=== PATIENT | male | born 1960 | race Caucasian/White ===

== ENCOUNTER 2020-08-11 06:02 | Day surgery (SDC) | payer MEDICARE, BC, OTHER ==
[~2020-08-11] VITALS: Ht 170.2 cm; Wt 78.8 kg
[~2020-08-11 06:02] MED LIST: ALBU8.5H INH; ALBUTEROL SULFATE 2.5 MG/0.5 ML INH NEB SOLN INH ONE; AZIT-12 PO; B-12100010 PO; CARV6.25 PO; FAMO40TA3 PO; FOLI1TAB11 PO; GNP45TAB2 PO; LIDOCAINE 1% MDV 20ML VIAL SQ PRN; LIDOCAINE 4% INJ 5ML AMP NEB ONE; LISI-898 PO; LR 1,000 ML IV ONE; NICOINH INH; ONDA8TAB10 PO; PANT40TA29 PO; TREL1AER; WARF-23 PO
[2020-08-11] MEDS ORDERED: ENOX40IN3 SC (06:38)
[2020-08-11 07:14] LABS: INR 0.95; PROTHROMBIN TIME 12.9 SECONDS (12.5-14.3)
[2020-08-11] MEDS ORDERED: THROMBIN SOLN 20,000 UNITS KIT As Ordered ONE (07:19)
[2020-08-11] MEDS ORDERED: LIDOCAINE 1% SDV 30ML VIAL As Ordered ONE (07:19)
[2020-08-11] MEDS ORDERED: LIDOCAINE 4% TOPICAL SOLN 50 ML BTL As Ordered ONE (07:19)
[2020-08-11] MEDS ORDERED: EPINEPHrine 1MG/10ML SYRINGE 1.5IN As Ordered ONE (07:19)
[2020-08-11] MEDS ORDERED: LIDOCAINE VISCOUS 2% SOLN 15ML UDC As Ordered ONE (07:20)
[2020-08-11] MEDS ORDERED: CETACAINE SPRAY 5GM As Ordered ONE (07:21)
[2020-08-11] MEDS ORDERED: dexameTHASONE 4 MG/ML 1ML VIAL (J1100 PER 1MG) As Ordered ONE (07:21)
[2020-08-11] MEDS ORDERED: ROCURONIUM BROMIDE 50 MG/5 ML VIAL As Ordered ONE (07:21)
[2020-08-11] MEDS ORDERED: LIDOCAINE 2% 100MG/5ML SDV (FOR ANES.) As Ordered ONE (07:21)
[2020-08-11] MEDS ORDERED: propofoL 200 MG/20 ML VIAL As Ordered ONE (07:21)
[2020-08-11] MEDS ORDERED: fentaNYL 100 MCG/2 ML INJECTION (J3010) As Ordered ONE (07:21)
[2020-08-11] MEDS ORDERED: MIDAZOLAM INJ 2MG/2ML VIAL (J2250 PER 1MG) As Ordered ONE (07:21)
[2020-08-11] MEDS ORDERED: ePHEDrine SULFATE 25 MG/5 ML(5MG/ML) SYRINGE As Ordered ONE (08:08)
[2020-08-11] MEDS ORDERED: PHENYLephrine 500MCG 5ML (100MCG/ML) SYRINGE As Ordered ONE (08:08)
[2020-08-11] MEDS ORDERED: ONDANSETRON 4MG/2ML VIAL As Ordered ONE (08:29)
[2020-08-11] MEDS ORDERED: SUGAMMADEX SODIUM 500 MG/5 ML VIAL (BRIDION) As Ordered ONE (08:29)
[2020-08-11] MEDS ORDERED: THROMBIN SOLN 5,000 UNITS VIAL As Ordered ONE (08:48)
--- NOTE | 2020-08-11 09:09 | REP ---
INDICATION: LEFT UPPER LOBE ABNORMALITY. COMPARISON: None. TECHNIQUE: Twenty-five views. 2 minutes 29 seconds of fluoroscopy is reported. FINDINGS: A sequence of 25 fluoroscopically obtained spot radiographs of the left chest document bronchoscopic manipulation in position. IMPRESSION: Procedural imaging. <Electronically signed by Merritt Peralta > 08/11/20 [id number]
--- NOTE | 2020-08-11 09:29 | RO ---
OPERATIVE NOTE DATE OF OPERATION: 08/11/2020 PREOPERATIVE DIAGNOSIS: Left lung mass. 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 PROCEDURE: Fiberoptic bronchoscopy with wash brush biopsies and photos done under fluoroscopic guidance and partially with the assistance of the [id number] robotic platform. SURGEON: Pavel Simon M.D. CHIEF CONSTRUCTION INSPECTOR: Debra Hernandez M.D. ANESTHESIA: General. CONSENT: Informed consent was obtained prior to the procedure. OPERATIVE FINDINGS: 1. Diffuse changes of chronic bronchitis. 2. 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 DESCRIPTION OF PROCEDURE: After the patient was identified and the above anesthesia given, the robotic platform was prepared. Prior to this, formal bronchoscopy was performed. The endotracheal tube was in good position. The left lung was entered first. Left upper lobe showed changes consistent with radiation with circumferential narrowing and hardening of the airways. Significant secretions were encountered. Left lower lobe widely patent but changes of chronic bronchitis were noted as well as retained secretions. The right lung showed upper, middle, and lower lobes generally widely patent. Changes of chronic bronchitis were noted and some significant secretions were encountered and easily suctioned clear. The robotic platform was then deployed. Despite fluoroscopic confirmation of being in the lesion in question, and confirmation as well with radial ultrasound, a cytology brush was able to be passed into the area. This was immediately examined by the cytotechnology injection molding process technician. No obvious abnormalities were identified. Despite multiple attempts, the biopsy forceps were not able to be passed into that area. The area was washed, however. The [place] platform was then abandoned and formal bronchoscopy was then employed and multiple biopsies were taken of heaped-up mucosa in the lingula. Only minimal bleeding was encountered. Topical epinephrine as well as topical thrombin were employed. The area was washed and brushed as well. When adequate hemostasis was assured, the scope was then withdrawn and the procedure terminated. Fluoroscopic examination immediately post-procedure did not demonstrate any evidence of pneumothorax. Care was then turned over to anesthesia for reversal of anesthetic agents. Chest x-ray is planned for one hour post-procedure. No immediate complications were identified.
[2020-08-11] MEDS ORDERED: ONDANSETRON 4MG/2ML VIAL IV PRN (09:35)
[2020-08-11] MEDS ORDERED: fentaNYL 100 MCG/2 ML INJECTION (J3010) IV PRN (09:35)
[2020-08-11] MEDS ORDERED: LR 1,000 ML IV SCH (09:35)
[2020-08-11] MEDS ORDERED: METOCLOPRAMIDE INJ 10MG/2ML VIAL (J2765 PER 1) IV PRN (09:35)
--- NOTE | 2020-08-11 10:16 | REP ---
INDICATION: POST OP IN PACU, ORDERED TO BE COMPLETED AT 1000. COMPARISON: None TECHNIQUE: Portable AP chest with the patient upright, two views. FINDINGS: Trauma there is no pneumothorax or pleural fluid collection. There are no focal infiltrates. The interstitium is mildly coarsened. This could be chronic or acute or combination. No nodules or masses are identified. Cardiac size is normal. The karlene, mediastinum, and skeletal structures are unremarkable. IMPRESSION: No pneumothorax or pleural fluid collection. No focal infiltrate. Mildly coarsened interstitium as discussed. <Electronically signed by Erlin Kim > 08/11/20 1012
== END 2020-08-11 12:03 | disposition home or self-care (01) ==
LOC: M SDC 06:02 → EDUNIT# 09:45 → M SDC 12:03
PROVIDERS: ATTEND Internal Medicine Pulmonary Disease
DX: R91.8 Other nonspecific abnormal finding of lung field (principal); J44.9 Chronic obstructive pulmonary disease, unspecified; I10 Essential (primary) hypertension; I35.9 Nonrheumatic aortic valve disorder, unspecified; K44.9 Diaphragmatic hernia without obstruction or gangrene; K21.9 Gastro-esophageal reflux disease without esophagitis; Z86.718 Personal history of other venous thrombosis and embolism; R06.02 Shortness of breath; R56.9 Unspecified convulsions; M54.9 Dorsalgia, unspecified; F32.9 Major depressive disorder, single episode, unspecified; F41.9 Anxiety disorder, unspecified; Z86.61 Personal history of infections of the central nervous system; Z85.118 Personal history of other malignant neoplasm of bronchus and lung; Z92.21 Personal history of antineoplastic chemotherapy; Z92.3 Personal history of irradiation; R06.83 Snoring; Z86.14 Personal history of Methicillin resistant Staphylococcus aureus infection; F17.210 Nicotine dependence, cigarettes, uncomplicated; Z91.030 Bee allergy status; Z79.899 Other long term (current) drug therapy; Z79.01 Long term (current) use of anticoagulants; Z79.2 Long term (current) use of antibiotics; Z79.51 Long term (current) use of inhaled steroids
CPT/HCPCS: 31623; 31625; 36415; 71045; 76000; 85610; 85730; 87070; 87102; 87116; 87186; 87205; 87206; 88104; 88305; J1100; J2250; J2370; J2405; J3010; S2900